=== PATIENT | female | born 1985 | race Caucasian/White ===

== ENCOUNTER 2017-07-10 13:35 | Inpatient (IN) | payer MEDICAID, SELFPAY ==
[2017-07-10 13:32] VITALS: BMI 22.4
--- NOTE | 2017-07-10 13:35 | HP.PCM_ITS ---
Problem List (1) Heroin withdrawal Status: Chronic (2) Cocaine abuse Status: Chronic (3) UTI (urinary tract infection) Status: Chronic Qualifiers: Urinary tract infection type: acute cystitis (4) Nicotine dependence Status: Chronic Qualifiers: Nicotine product type: cigarettes Substance use status: uncomplicated Qualified Code(s): F17.210 - Nicotine dependence, cigarettes, uncomplicated History of Present Illness Date of Admission: 07/10/17 Chief Complaint: Generalized aches, chills -1 day The patient is a 32 year old F with past medical history of heroin use disorder , cocaine use disorder, nicotine use disorder, with 6 reported episodes of overdoses with blackouts, recently being treated for UTI, anxiety and depression who comes in with feelings of nausea, chills, generalized aches, gooseflesh, feeling of things crawling on skin and restlessness. Patient is being admitted under the [facility] program for medical stabilization for opiate withdrawal. She reports being in a similar program in [place] 3 weeks ago. She last used heroin more than 1 g yesterday. Also used about the same amount of cocaine yesterday. She denied any fever but positive chills.\ Admitting vitals have been stable. 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 Denies: Anorexia, Fever, Weakness, Fatigue Eyes: Reports: Drainage. Denies: Blurred vision, Cataracts, Conjunctivae Inflammation, Double vision, Pain, Redness HEENT: Reports: Nasal Congestion. Denies: Head Aches, Hearing Changes, Sinus Congestion, Sinus Drainage Cardiovascular: Denies: Chest Pain, Claudication, Chest Pressure, Chest Tightness, Orthopnea, Palpitations, Paroxysmal Noc. Dyspnea Respiratory: Denies: Cough, Hemoptysis, Pleuritic Pain, Shortness of breath at rest, Shortness of breath upon exertion, Sputum production Gastrointestinal: Denies: Abdominal Pain, Constipation, Hematemesis, Nausea, Vomiting Genitourinary: Denies: Dysuria, Frequency, Hematuria Gynecological: Denies: Breast symptoms, Excessively long or heavy periods Musculoskeletal: Denies: Joint Pain, Joint stiffness, Joint swelling, Joint Tenderness Skin: Denies: Rash, Wounds Neurological: Denies: Numbness, Tingling, Focal weakness Psychiatric: Denies: Anxiety, Depression, Homicidal Ideations, Suicidal Ideations Hematologic/ Lymphatic: Denies: Easy Bruising, Easy Bleeding VTE Information - Inpt Only VTE Present on Admission: No VTE Pharm Prophylaxis ordered?: Yes - Physical Exam General: Alert, Oriented x3, Cooperative, - - Looks unwell, covered appreciate, not pale, no jaundice HEENT: Atraumatic, PERRLA, EOMI, Normocephalic Oral: Moist Mucosa Neck: Supple, No JVD, Negative Carotid Bruits Lungs: Clear to auscultation, Normal air movement Cardiovascular: Regular rate, Regular Rhythm, Normal S1, Normal S2, No murmurs, Tachycardic Abdomen: Bowel Sounds Present, Soft, Non Tender, Non-Distended, No Hepato- splenomegaly Extremities: No edema Skin: No rashes, No breakdown Musculoskeletal: No Tenderness to Palpation of Joints or Extremities Lymphatic: No Cervical, Supraclavicular, or Inguinal Adenopathy Neurological: Cranial nerves II-XII grossly intact, Neuro grossly intact Psych/Mental Status: Normal Affect, Appropriate Assessment/Plan 32 year old F with past medical history of heroin use disorder, cocaine use disorder, nicotine use disorder, with 6 reported episodes of overdoses with blackouts, recently being treated for UTI, anxiety and depression who comes in with feelings of nausea, chills, generalized aches, gooseflesh, feeling of things crawling on skin and restlessness. 1. Acute opiate withdrawal, will admit patient for medical stabilization the [facility], will follow management per protocol, get admitting blood work, urine for testing 2. Polysubstance use, cocaine and nicotine, will put on withdrawal protocol with nicotine replacement also 3. Recent UTI, on Macrobid, has 4 more pills to complete, will complete medication 4. Anxiety/depression, not on any medications 5. DVT prophylaxis with early ambulation Code Visit Inpatient E&M: 48793 Init Hosp L2
[2017-07-10 13:50] VITALS: BP 119/82; PULSE 78; RESP 16; TEMP 36.9
[2017-07-10 14:01] LABS: Absolute Lymphocyte Count 1.87 X10^3/ul (0.83-4.51); Absolute Neutrophil Count 4.7 X10^3/uL (2.0-7.7); Basophil# 0.02 X10^3/uL; Basophil% 0.3 % (0-1); Eosinophil# 0.17 X10^3/uL; Eosinophils% 2.4 % (0-5); Hematocrit 39.3 % (37-47); Hemoglobin 12.8 g/dl (12.0-15.0); Lymphocyte # 1.87 X10^3/ul (4.0); Lymphocyte % 26.1 % (19-41); Mean Corp Hgb Conc 32.6 g/gl (32-36); Mean Corpuscular Hgb 27.6 pg (27.0-32.0); Mean Corpuscular Volume 84.7 fL (81-99); Mean Platelet Vol. 10.3 fl (6.2-12.0); Monocyte# 0.42 X10^3/uL; Monocyte% 5.9 % (0-10); Neutrophil # 4.67 X10^3/uL (2.7-7.7); Neutrophil % 65.2 % (47-70); Platelet Count 314 K/mm3 (150-450); RBC Distribution Width CV 17.8 % (11.6-14.6); RBC Distribution Width SD 54.9 fl (35.1-43.9); Red Blood Count 4.64 M/mm3 (4.2-5.4); White Blood Count 7.2 K/mm3 (4.4-11.0)
[2017-07-10 14:06] LABS: POSITIVE COUNT NO; POSITIVE DIFFERENTIAL NO; POSITIVE MORPHOLOGY NO
[2017-07-10] MEDS: Buprenorphine HCl 2 MG TAB.SUBL SL ×2 (14:09→21:16)
[2017-07-10] MEDS: Methocarbamol 750 MG Tablet PO ×2 (14:09→20:09)
[2017-07-10] MEDS: QUEtiapine 25 MG Tablet PO ×2 (14:09→20:09)
[2017-07-10 14:18] LABS: BUN 8 mg/dL (7-18); Creatinine, Serum 0.83 mg/dL (0.55-1.02); Glucose 90 mg/dL (74-106)
[2017-07-10 14:19] LABS: ALB/GLOB Ratio 0.8 RATIO (0.9-2.4); AST(SGOT) 35 U/L (15-37); Alanine Aminotransfer ALT/SGPT 52 U/L (13-56); Albumin, Serum 3.4 g/dL (3.2-5.0); Alkaline Phosphatase 64 U/L (45-117); Anion Gap 4 (5-15); BUN/Creat Ratio 9.7 RATIO (10-20); Calcium,Total 8.7 mg/dL (8.5-10.1); Chloride 108 mmol/L (98-107); EST Glomerular Filtration Rate 85 mL/min (>60); Est Glom Filt Rate - Afr Amer 102 mL/min (>60); Estimated Creatinine Clearance 79.75 ml/min; Protein, Total 7.4 g/dL (6.4-8.2); Sodium Level 141 mmol/L (136-145)
[2017-07-10 15:08] LABS: Pregnancy, Serum, hCG Quali. NEGATIVE Negative (0-9 Nonpreg)
[2017-07-10] MEDS: Nitrofurantoin Macrocrystals 100 MG Capsule PO (16:52)
[2017-07-10] MEDS: Dicyclomine 10 MG Capsule 20 MG PO ×2 (16:53→23:54)
[2017-07-10] MEDS: cloNIDine HCl 0.1 MG Tablet PO ×2 (16:53→20:09)
[2017-07-10] MEDS: Ondansetron 8 MG Tablet PO (16:53)
[2017-07-10 16:57] VITALS: BP 124/78
[2017-07-10 18:00] VITALS: BP 119/82; PULSE 78; RESP 16; TEMP 36.9
[2017-07-10] MEDS: hydrOXYzine PAM 25 MG Capsule 50 MG PO (18:35)
[2017-07-10] MEDS: Pramipexole Di-HCl 0.25 MG Tablet PO (18:35)
[2017-07-10 18:57] LABS: Internal QC Validated? YES +Cl - CLEAR BKGD; Pregnancy, Urine Negative Negative
[2017-07-10 21:05] VITALS: BP 97/59; PULSE 66; RESP 16; TEMP 36.9
[2017-07-10] MEDS: Famotidine 20 MG Tablet PO (21:16)
[2017-07-10] MEDS: Ibuprofen 600 MG Tablet PO (21:22)
[2017-07-10] MEDS: Zolpidem Tartrate 5 MG Tablet PO (23:54)
[2017-07-11 01:09] VITALS: BP 92/49; PULSE 53; RESP 16; TEMP 36.2
[2017-07-11] MEDS: hydrOXYzine PAM 25 MG Capsule 50 MG PO ×4 (01:19→23:49)
[2017-07-11] MEDS: Methocarbamol 750 MG Tablet PO ×4 (03:23→23:49)
[2017-07-11] MEDS: QUEtiapine 25 MG Tablet PO ×3 (03:23→20:40)
[2017-07-11 05:05] VITALS: BP 92/59; PULSE 61; RESP 16; TEMP 36.3
[2017-07-11] MEDS: Buprenorphine HCl 2 MG TAB.SUBL SL ×3 (05:10→22:06)
[2017-07-11] MEDS: Dicyclomine 10 MG Capsule 20 MG PO ×2 (06:46→20:40)
[2017-07-11] MEDS: Ibuprofen 600 MG Tablet PO ×2 (06:47→20:39)
[2017-07-11] MEDS: Pramipexole Di-HCl 0.25 MG Tablet PO ×2 (06:47→20:40)
[2017-07-11 09:20] VITALS: BP 94/57; PULSE 52; RESP 16; TEMP 36.4; O2SAT 99
[2017-07-11] MEDS: Nitrofurantoin Macrocrystals 100 MG Capsule PO ×2 (09:22→16:39)
[2017-07-11] MEDS: Famotidine 20 MG Tablet PO ×2 (09:22→22:06)
--- NOTE | 2017-07-11 09:22 | PN_ITS ---
Subjective: Patient was seen and examined, she complains of generalized aches and chills. No acute events overnight. She denies any fever or chills. Objective: Physical Exam General: Alert, Oriented x3, Cooperative, - - Looks unwell, not pale, no jaundice HEENT: Atraumatic, PERRLA, EOMI, Normocephalic Oral: Moist Mucosa Neck: Supple, No JVD, Negative Carotid Bruits Lungs: Clear to auscultation, Normal air movement Cardiovascular: Regular rate, Regular Rhythm, Normal S1, Normal S2, No murmurs, Tachycardic Abdomen: Bowel Sounds Present, Soft, Non Tender, Non-Distended, No Hepato- splenomegaly Extremities: No edema Skin: No rashes, No breakdown Musculoskeletal: No Tenderness to Palpation of Joints or Extremities Lymphatic: No Cervical, Supraclavicular, or Inguinal Adenopathy Neurological: Cranial nerves II-XII grossly intact, Neuro grossly intact Psych/Mental Status: Normal Affect, Appropriate Vitals/I&O's: Vital Signs Temp Pulse Resp BP 97.3 F L 61 16 92/59 L 07/11/17 05:05 07/11/17 05:05 07/11/17 05:05 07/11/17 05:05 Oxygen Delivery Method Room Air Weight: 57.3 kg Body Mass Index (BMI) 22.4 Intake and Output for Last 24 Hours 07/09/17 07/10/17 07/11/17 23:59 23:59 23:59 Intake Total 738 / 738 200 / 200 Output Total 400 / 400 Balance 338 / 338 200 / 200 Laboratory Results 07/10/17 13:52: WBC 7.2, RBC 4.64, Hgb 12.8, Hct 39.3, MCV 84.7, MCH 27.6, MCHC 32.6, RDW 17.8 H, RDW Differential 54.9 H, Plt Count 314, MPV 10.3, Immature Gran % (Auto) 0.100, Neut % (Auto) 65.2, Lymph % (Auto) 26.1, [place] % (Auto) 5.9 , Eos % (Auto) 2.4, Baso % (Auto) 0.3, Absolute Neuts (auto) 4.7, Absolute Lymphs (auto) 1.87, Total Counted Not Reportable 07/10/17 13:52: Sodium 141, Potassium 4.0, Chloride 108 H, Carbon Dioxide 29.0, Anion Gap 4 L, BUN 8, Creatinine 0.83, Estim Creat Clear Calc 79.75, Est GFR ( MDRD) Af Amer 102, Est GFR (MDRD) Non-Af 85, BUN/Creatinine Ratio 9.7 L, Glucose 90, Calcium 8.7, Total Bilirubin 0.30, AST 35, ALT 52, Alkaline Phosphatase 64, Total Protein 7.4, Albumin 3.4, Globulin 4.0, Albumin/Globulin Ratio 0.8 L 07/10/17 13:52: Serum , Qual NEGATIVE 07/10/17 18:10: Urine Test Negative Current Medications Acetaminophen (Tylenol) 500 mg PO Q4H PRN PRN PRN Reason: Temp > 100.4 F Bisacodyl (Dulcolax) 5 mg PO DAILY PRN PRN PRN Reason: Constipation Buprenorphine HCl (Buprenorphine Hcl) 4 mg SL Q8H [facility] PRN Reason: Taper Stop: 07/13/17 17:44 Last Admin: 07/11/17 05:10 Dose: 4 mg Clonidine (Catapres) 0.1 mg PO Q2H PRN PRN PRN Reason: Hot/Cold Sweats or Anxiety Last Admin: 07/10/17 20:09 Dose: 0.1 mg Dicyclomine HCl (Bentyl) 20 mg PO Q6H PRN PRN PRN Reason: Abdomnial Discomfort Last Admin: 07/11/17 06:46 Dose: 20 mg Famotidine (Pepcid) 20 mg PO BID [facility] Last Admin: 07/10/17 21:16 Dose: 20 mg Folic Acid (Folic Acid) 1 mg PO DAILY@0800 [facility] Hydroxyzine HCl (Vistaril Vial) 50 mg IM Q6H PRN PRN PRN Reason: Breakthrough Anxiety Hydroxyzine Pamoate (Vistaril Pamoate Capsule) 50 mg PO Q6H PRN PRN PRN Reason: Mild Anxiety (score 1/3) Last Admin: 07/11/17 01:19 Dose: 50 mg Ibuprofen (Motrin) 600 mg PO Q8H PRN PRN PRN Reason: Mild-Moderate Pain (1-5/10) Last Admin: 07/11/17 06:47 Dose: 600 mg Loperamide HCl (Imodium) 2 - 4 mg PO UD PRN PRN Reason: LOOSE STOOLS Magnesium Hydroxide (Milk Of Magnesia) 30 ml PO DAILY PRN PRN PRN Reason: Constipation Methocarbamol (Methocarbamol) 750 mg PO Q6H PRN PRN PRN Reason: Muscle Aches Last Admin: 07/11/17 03:23 Dose: 750 mg Multivitamins/Minerals (Multivitamin With Minerals) 1 tablet PO DAILYCM [facility] Nicotine (Nicoderm Cq (Pbkc)) 21 mg TRANSDERM. DAILY [facility] Nicotine Polacrilex (Rugby Nicotine (Bkc)) 2 mg PO Q2H PRN PRN PRN Reason: Nicotine Craving Nitrofurantoin Macrocrystals (Macrobid) 100 mg PO BIDCM [facility] Stop: 07/12/17 08:01 Last Admin: 07/10/17 16:52 Dose: 100 mg Ondansetron HCl (Zofran) 8 mg PO Q8H PRN PRN PRN Reason: NAUSEA/VOMITING Last Admin: 07/10/17 16:53 Dose: 8 mg Pramipexole Dihydrochloride (Mirapex) 0.25 mg PO Q12H PRN PRN PRN Reason: Restless Legs Last Admin: 07/11/17 06:47 Dose: 0.25 mg Psyllium Hydrophilic Mucilloid (Metamucil) 1 packet PO DAILY PRN PRN PRN Reason: CONSTIPATION Quetiapine Fumarate (Seroquel) 25 mg PO Q6H PRN PRN PRN Reason: Moderate Anxiety (score 2/3) Last Admin: 07/11/17 03:23 Dose: 25 mg Zolpidem Tartrate (Ambien (Generic)) 5 mg PO QHS PRN PRN PRN Reason: INSOMNIA Last Admin: 07/10/17 23:54 Dose: 5 mg Medical Necessity - Tobacco Use Smoking Status: Current every day smoker Tobacco Use: Cigarettes Assessment/Plan 32 year old F with past medical history of heroin use disorder, cocaine use disorder, nicotine use disorder, with 6 reported episodes of overdoses with blackouts, recently being treated for UTI, anxiety and depression who comes in with feelings of nausea, chills, generalized aches, gooseflesh, feeling of things crawling on skin and restlessness. 1. Acute opiate withdrawal, clinically stable, continue on medical stabilization per [facility] 2. Polysubstance use, cocaine and nicotine, on withdrawal protocol with nicotine replacement also 3. Recent UTI, on Macrobid, will complete antibiotics tomorrow 4. Anxiety/depression, not on any medications 5. History of hepatitis C, needs to be followed up in the outpatient 6. DVT prophylaxis with early ambulation Code Visit Inpatient E&M: 11634 Subs Hosp L2
[2017-07-11] MEDS: Multivitamins,Ther W-Minerals Tablet 1 TABLET PO (09:23)
[2017-07-11] MEDS: Folic Acid 1 MG Tablet PO (09:23)
[2017-07-11] MEDS: cloNIDine HCl 0.1 MG Tablet PO (14:20)
[2017-07-11 14:22] VITALS: BP 111/54; PULSE 65; RESP 18; TEMP 37.3
[2017-07-11 16:40] VITALS: BP 95/49; PULSE 54; RESP 18; TEMP 37.1
[2017-07-11 20:26] VITALS: BP 94/60; PULSE 61; RESP 18; TEMP 36.8
[2017-07-11] MEDS: Zolpidem Tartrate 5 MG Tablet PO (23:48)
[2017-07-12 05:26] VITALS: BP 107/61; PULSE 63; RESP 18; TEMP 36.9
[2017-07-12] MEDS: Dicyclomine 10 MG Capsule 20 MG PO (05:33)
[2017-07-12] MEDS: QUEtiapine 25 MG Tablet PO ×2 (05:33→14:06)
[2017-07-12] MEDS: Buprenorphine HCl 2 MG TAB.SUBL SL ×2 (05:33→18:10)
[2017-07-12] MEDS: Ibuprofen 600 MG Tablet PO ×2 (05:33→14:06)
--- NOTE | 2017-07-12 06:45 | PCM.PROGNOTE ---
Subjective: The patient is a 32-year-old female with a past medical history of heroin addiction, cocaine use disorder, tobacco dependence and recently diagnosed urinary tract infection who has had 6 reported episodes of overdoses with blackouts. She also states she suffers from anxiety and depression. She presented to the [facility] office at [facility] on 07/10/2017 requesting inpatient admission for medical stabilization for opiate withdrawal. She had just attended a similar program in [place] 3 weeks prior to coming to [facility]. She reported using approximately 1 g of heroin and 1 g of cocaine the day preceding admission. Vital signs at admission were temp 98.4, pulse rate 78, blood pressure 119/82 and the respiratory rate was 16. CBC was unremarkable. Electrolytes were also unremarkable and the BUN was 8 with a creatinine of 0.83. Serum test was negative and the urine test was also negative. LFTs were unremarkable. The [facility] protocol for acute opiate withdrawal was initiated and the patient is currently on a Suboxone taper. Afebrile with stable vital signs She is restless and having some nausea and abdominal cramping No diarrhea, no vomiting On her most recent admission for detox she went home at [place]. She started using nearly right after [place]. She is + for Hep C in the past. She lives with her significant other and he is not a drug abuser. She plans on going to an inpt facility at [place] form [facility]. Has been using Heroin for 11 years. Her sister is a heroin addict and she just decided to try it and got hooked. Did not start with pills or pot or ETOH. - Physical Exam General: Alert, Oriented x3, Cooperative, - - she is restless and having some chills HEENT: Atraumatic, PERRLA, EOMI Oral: Moist Mucosa Neck: Supple, Trachea Midline Lungs: Clear to auscultation Cardiovascular: Regular rate, Regular Rhythm, Normal S1, Normal S2, No murmurs, No rub noted, No Gallop Abdomen: Bowel Sounds Present, Soft, Non Tender, Non-Distended, No Hepato-splenomegaly Extremities: No clubbing, No cyanosis, No edema, No Calf Tenderness Skin: No rashes Neurological: Cranial nerves II-XII grossly intact, Neuro grossly intact Psych/Mental Status: Normal Affect, Appropriate Vital Signs Temp Pulse Resp BP Pulse Ox 98.4 F 63 18 107/61 99 07/12/17 05:26 07/12/17 05:26 07/12/17 05:26 07/12/17 05:26 07/11/17 09:20 Oxygen Delivery Method Room Air Weight: 126 lb 5.198 oz Body Mass Index (BMI) 22.4 Intake and Output for Last 24 Hours 07/10/17 07/11/17 07/12/17 23:59 23:59 23:59 Intake Total 738 / 738 600 / 600 100 / 100 Output Total 400 / 400 Balance 338 / 338 600 / 600 100 / 100 Medical Necessity - Tobacco Use Smoking Status: Current every day smoker Tobacco Use: Cigarettes Assessment/Plan Impressions 1. Acute opiate withdrawal-admitted to the [facility] for medical stabilization for acute opiate withdrawal. [facility] protocol was initiated at admission. 2. Positive hepatitis C 3. Tobacco dependence 4. Recent UTI-on Macrobid New [facility] protocol for opiate withdrawal Plans inpatient facility at discharge Code Visit Inpatient E&M: 54177 Subs Hosp L2
--- NOTE | 2017-07-12 06:52 | PN_ITS ---
Subjective: The patient is a 32-year-old female with a past medical history of heroin addiction, cocaine use disorder, tobacco dependence and recently diagnosed urinary tract infection who has had 6 reported episodes of overdoses with blackouts. She also states she suffers from anxiety and depression. She presented to the [facility] office at [facility] on 07/10/2017 requesting inpatient admission for medical stabilization for opiate withdrawal. She had just attended a similar program in [place] 3 weeks prior to coming to [facility]. She reported using approximately 1 g of heroin and 1 g of cocaine the day preceding admission. Vital signs at admission were temp 98.4, pulse rate 78, blood pressure 119/82 and the respiratory rate was 16. CBC was unremarkable. Electrolytes were also unremarkable and the BUN was 8 with a creatinine of 0.83. Serum test was negative and the urine test was also negative. LFTs were unremarkable. The [facility] protocol for acute opiate withdrawal was initiated and the patient is currently on a Suboxone taper. Afebrile with stable vital signs She is restless and having some nausea and abdominal cramping No diarrhea, no vomiting On her most recent admission for detox she went home at [place]. She started using nearly right after [place]. She is + for Hep C in the past. She lives with her significant other and he is not a drug abuser. She plans on going to an inpt facility at [place] form [facility]. Has been using Heroin for 11 years. Her sister is a heroin addict and she just decided to try it and got hooked. Did not start with pills or pot or ETOH. - Physical Exam General: Alert, Oriented x3, Cooperative, - - she is restless and having some chills HEENT: Atraumatic, PERRLA, EOMI Oral: Moist Mucosa Neck: Supple, Trachea Midline Lungs: Clear to auscultation Cardiovascular: Regular rate, Regular Rhythm, Normal S1, Normal S2, No murmurs, No rub noted, No Gallop Abdomen: Bowel Sounds Present, Soft, Non Tender, Non-Distended, No Hepato- splenomegaly Extremities: No clubbing, No cyanosis, No edema, No Calf Tenderness Skin: No rashes Neurological: Cranial nerves II-XII grossly intact, Neuro grossly intact Psych/Mental Status: Normal Affect, Appropriate Vital Signs Temp Pulse Resp BP Pulse Ox 98.4 F 63 18 107/61 99 07/12/17 05:26 07/12/17 05:26 07/12/17 05:26 07/12/17 05:26 07/11/17 09:20 Oxygen Delivery Method Room Air Weight: 126 lb 5.198 oz Body Mass Index (BMI) 22.4 Intake and Output for Last 24 Hours 07/10/17 07/11/17 07/12/17 23:59 23:59 23:59 Intake Total 738 / 738 600 / 600 100 / 100 Output Total 400 / 400 Balance 338 / 338 600 / 600 100 / 100 Medical Necessity - Tobacco Use Smoking Status: Current every day smoker Tobacco Use: Cigarettes Assessment/Plan Impressions 1. Acute opiate withdrawal-admitted to the [facility] for medical stabilization for acute opiate withdrawal. [facility] protocol was initiated at admission. 2. Positive hepatitis C 3. Tobacco dependence 4. Recent UTI-on Macrobid New [facility] protocol for opiate withdrawal Plans inpatient facility at discharge Code Visit Inpatient E&M: 15256 Subs Hosp L2
[2017-07-12] MEDS: Nitrofurantoin Macrocrystals 100 MG Capsule PO (08:06)
[2017-07-12] MEDS: Multivitamins,Ther W-Minerals Tablet 1 TABLET PO (08:06)
[2017-07-12] MEDS: Folic Acid 1 MG Tablet PO (08:06)
[2017-07-12 10:00] VITALS: BP 112/62; PULSE 68; RESP 18; TEMP 36.3
[2017-07-12] MEDS: Famotidine 20 MG Tablet PO ×2 (10:31→20:52)
[2017-07-12 14:00] VITALS: BP 121/67; PULSE 75; RESP 18; TEMP 37.1
[2017-07-12 18:00] VITALS: BP 105/68; PULSE 87; RESP 18; TEMP 36.5
[2017-07-12] MEDS: hydrOXYzine PAM 25 MG Capsule 50 MG PO (18:13)
[2017-07-12] MEDS: Zolpidem Tartrate 5 MG Tablet PO (20:52)
[2017-07-12] MEDS: Pramipexole Di-HCl 0.25 MG Tablet PO (20:52)
[2017-07-12 22:00] VITALS: BP 121/68; PULSE 66; RESP 16; TEMP 36.7
[2017-07-13] MEDS: QUEtiapine 25 MG Tablet PO (00:49)
[2017-07-13] MEDS: Ibuprofen 600 MG Tablet PO (00:49)
[2017-07-13 02:00] VITALS: BP 121/73; PULSE 63; RESP 16; TEMP 36.4
[2017-07-13 04:09] LABS: HEPATITIS B SURFACE AG Negative (Negative); Hepatitis A AB, Total Negative (Negative); Hepatitis A IgM Antibody Negative (Negative); Hepatitis B Core AB IgM Negative (Negative); Hepatitis B Core Ab Total Negative (Negative)
[2017-07-13] MEDS: Buprenorphine HCl 2 MG TAB.SUBL SL (05:46)
[2017-07-13 08:18] VITALS: BP 113/70; PULSE 61; RESP 16; TEMP 36.6
[2017-07-13] MEDS: Folic Acid 1 MG Tablet PO (08:22)
[2017-07-13] MEDS: Famotidine 20 MG Tablet PO (08:22)
[2017-07-13] MEDS: Multivitamins,Ther W-Minerals Tablet 1 TABLET PO (08:23)
[2017-07-13 08:47] LABS: Hep B Surface Antibodies Reactive (.)
[2017-07-13 08:50] LABS: Hepatitis C Ab >11.0 s/co ratio (0.0-0.9)
--- NOTE | 2017-07-13 09:47 | PCM.DC ---
- Discharge Diagnoses Current Active Problems: Current Active and Chronic Problems Heroin withdrawal (Chronic) Cocaine abuse (Chronic) UTI (urinary tract infection) (Chronic) Nicotine dependence (Chronic) You will use the following diet at home:: No restrictions Your food should be the consistency of: Regular Your liquids should be the consistency of: Regular/Thin Discharge Activity: Return to Normal Activity Call your doctor if you observe: Fever of 101 or Higher, Shortness of breath, Dizziness, Fainting spells, Chest pain Allergies/Adverse Reactions: Allergies No Known Allergies Allergy (Verified 07/10/17 13:37) Medications to take at Discharge Nitrofurantoin Macrocrystals [Macrobid] 100 mg PO BID 07/10/17 Primary Care Physician: Care Physician,No Primary [Primary Care Provider] - Proposed Discharge Date: 07/13/17
--- NOTE | 2017-07-13 09:50 | PCM.DC.SUM ---
Discharge Date and Diagnosis - Problem List Patient Problems: Active and Suspected Problems Heroin withdrawal (Acute) UTI (urinary tract infection) (Acute) Date of Admission: 07/10/17 Date of Discharge: 07/13/17 - Primary Discharge Diagnosis Active and Suspected Problems Heroin withdrawal (Acute) UTI (urinary tract infection) (Acute) - Secondary Discharge Diagnosis Chronic Problems Opiate dependence (Chronic) Hepatitis C (Chronic) Cocaine abuse (Chronic) Nicotine dependence (Chronic) Hospital Course and Treatment Imaging Results: Laboratory Tests 07/10/17 07/10/17 07/10/17 13:52 13:52 13:52 WBC 7.2 RBC 4.64 Hgb 12.8 Hct 39.3 MCV 84.7 MCH 27.6 MCHC 32.6 RDW 17.8 H RDW Differential 54.9 H Plt Count 314 MPV 10.3 Immature Gran % (Auto) 0.100 Neut % (Auto) 65.2 Lymph % (Auto) 26.1 [place] % (Auto) 5.9 Eos % (Auto) 2.4 Baso % (Auto) 0.3 Absolute Neuts (auto) 4.7 Absolute Lymphs (auto) 1.87 Total Counted Not Reportable Sodium 141 Potassium 4.0 Chloride 108 H Carbon Dioxide 29.0 Anion Gap 4 L BUN 8 Creatinine 0.83 Estim Creat Clear Calc 79.75 Est GFR (MDRD) Af Amer 102 Est GFR (MDRD) Non-Af 85 BUN/Creatinine Ratio 9.7 L Glucose 90 Calcium 8.7 Total Bilirubin 0.30 AST 35 ALT 52 Alkaline Phosphatase 64 Total Protein 7.4 Albumin 3.4 Globulin 4.0 Albumin/Globulin Ratio 0.8 L Serum , Qual NEGATIVE Urine Test Hepatitis A IgM Ab Hepatitis A Ab Total Hep Bs Antigen Hep B Core Total Ab Hep B Core IgM Ab Hepatitis C Ab Confirm 07/10/17 07/12/17 18:10 07:20 WBC RBC Hgb Hct MCV MCH MCHC RDW RDW Differential Plt Count MPV Immature Gran % (Auto) Neut % (Auto) Lymph % (Auto) [place] % (Auto) Eos % (Auto) Baso % (Auto) Absolute Neuts (auto) Absolute Lymphs (auto) Total Counted Sodium Potassium Chloride Carbon Dioxide Anion Gap BUN Creatinine Estim Creat Clear Calc Est GFR (MDRD) Af Amer Est GFR (MDRD) Non-Af BUN/Creatinine Ratio Glucose Calcium Total Bilirubin AST ALT Alkaline Phosphatase Total Protein Albumin Globulin Albumin/Globulin Ratio Serum , Qual Urine Test Negative Hepatitis A IgM Ab Negative Hepatitis A Ab Total Negative Hep Bs Antigen Negative Hep B Core Total Ab Negative Hep B Core IgM Ab Negative Hepatitis C Ab Confirm >11.0 H None Operations: None Procedures: None Summary of Care Provided: The patient is a 32-year-old female with a past medical history of heroin addiction, cocaine use disorder, tobacco dependence and recently diagnosed urinary tract infection who has had 6 reported episodes of overdoses with blackouts. She also stated she suffers from anxiety and depression. She presented to the [facility] office at [facility] on 07/10/2017 requesting inpatient admission for medical stabilization for opiate withdrawal. She had just attended a similar program in [place] 3 weeks prior to coming to [facility] and relapsed soon after [place]. She went home after [place] and did not attend an OP program. She reported using approximately 1 g of heroin and 1 g of cocaine the day preceding admission. Vital signs at admission were temp 98.4, pulse rate 78, blood pressure 119/82 and the respiratory rate was 16. CBC was unremarkable. Electrolytes were also unremarkable and the BUN was 8 with a creatinine of 0.83. Serum test was negative and the urine test was also negative. LFTs were unremarkable. The [facility] protocol for acute opiate withdrawal was initiated and the patient is currently on a Suboxone taper. She had an uneventful hospital course and was discharged on 07/13/2017. Her plan is to attend an inpatient drug rehab program. Exam at discharge: Alert and oriented ?3, no tremors, lungs clear to auscultation, heart regular rate and rhythm without murmur, no peripheral edema, abdomen soft and nontender. This note was generated with [employer] dictation software. It may contain incorrect words, spelling, and punctuation that were not noted in checking the note before signing. Discharge Activity: Return to Normal Activity Call your doctor if you observe: Fever of 101 or Higher, Shortness of breath, Dizziness, Fainting spells, Chest pain Home Medications: Medications to take at Discharge Nitrofurantoin Macrocrystals [Macrobid] 100 mg PO BID 07/10/17 Primary Care Physician: Care Physician,No Primary [Primary Care Provider] - Minutes spent on discharge:: 30 Patient Condition:: Good Medical Necessity - Tobacco Use Smoking Status: Current every day smoker Tobacco Use: Cigarettes Meaningful Use Info Meaningful Use Diagnoses (Choose all that apply): None applicable Code Visit Inpatient E&M: 58778 Disch Hosp
--- NOTE | 2017-07-13 09:57 | DS.PCM_ITS ---
Discharge Date and Diagnosis - Problem List Patient Problems: Active and Suspected Problems Heroin withdrawal (Acute) UTI (urinary tract infection) (Acute) Date of Admission: 07/10/17 Date of Discharge: 07/13/17 - Primary Discharge Diagnosis Active and Suspected Problems Heroin withdrawal (Acute) UTI (urinary tract infection) (Acute) - Secondary Discharge Diagnosis Chronic Problems Opiate dependence (Chronic) Hepatitis C (Chronic) Cocaine abuse (Chronic) Nicotine dependence (Chronic) Hospital Course and Treatment Imaging Results: Laboratory Tests 07/10/17 07/10/17 07/10/17 13:52 13:52 13:52 WBC 7.2 RBC 4.64 Hgb 12.8 Hct 39.3 MCV 84.7 MCH 27.6 MCHC 32.6 RDW 17.8 H RDW Differential 54.9 H Plt Count 314 MPV 10.3 Immature Gran % (Auto) 0.100 Neut % (Auto) 65.2 Lymph % (Auto) 26.1 [place] % (Auto) 5.9 Eos % (Auto) 2.4 Baso % (Auto) 0.3 Absolute Neuts (auto) 4.7 Absolute Lymphs (auto) 1.87 Total Counted Not Reportable Sodium 141 Potassium 4.0 Chloride 108 H Carbon Dioxide 29.0 Anion Gap 4 L BUN 8 Creatinine 0.83 Estim Creat Clear Calc 79.75 Est GFR (MDRD) Af Amer 102 Est GFR (MDRD) Non-Af 85 BUN/Creatinine Ratio 9.7 L Glucose 90 Calcium 8.7 Total Bilirubin 0.30 AST 35 ALT 52 Alkaline Phosphatase 64 Total Protein 7.4 Albumin 3.4 Globulin 4.0 Albumin/Globulin Ratio 0.8 L Serum , Qual NEGATIVE Urine Test Hepatitis A IgM Ab Hepatitis A Ab Total Hep Bs Antigen Hep B Core Total Ab Hep B Core IgM Ab Hepatitis C Ab Confirm 07/10/17 07/12/17 18:10 07:20 WBC RBC Hgb Hct MCV MCH MCHC RDW RDW Differential Plt Count MPV Immature Gran % (Auto) Neut % (Auto) Lymph % (Auto) [place] % (Auto) Eos % (Auto) Baso % (Auto) Absolute Neuts (auto) Absolute Lymphs (auto) Total Counted Sodium Potassium Chloride Carbon Dioxide Anion Gap BUN Creatinine Estim Creat Clear Calc Est GFR (MDRD) Af Amer Est GFR (MDRD) Non-Af BUN/Creatinine Ratio Glucose Calcium Total Bilirubin AST ALT Alkaline Phosphatase Total Protein Albumin Globulin Albumin/Globulin Ratio Serum , Qual Urine Test Negative Hepatitis A IgM Ab Negative Hepatitis A Ab Total Negative Hep Bs Antigen Negative Hep B Core Total Ab Negative Hep B Core IgM Ab Negative Hepatitis C Ab Confirm >11.0 H None Operations: None Procedures: None Summary of Care Provided: The patient is a 32-year-old female with a past medical history of heroin addiction, cocaine use disorder, tobacco dependence and recently diagnosed urinary tract infection who has had 6 reported episodes of overdoses with blackouts. She also stated she suffers from anxiety and depression. She presented to the [facility] office at [facility] on 07/10/2017 requesting inpatient admission for medical stabilization for opiate withdrawal. She had just attended a similar program in [place] 3 weeks prior to coming to [facility] and relapsed soon after DC. She went home after DC and did not attend an OP program. She reported using approximately 1 g of heroin and 1 g of cocaine the day preceding admission. Vital signs at admission were temp 98.4, pulse rate 78, blood pressure 119/82 and the respiratory rate was 16. CBC was unremarkable. Electrolytes were also unremarkable and the BUN was 8 with a creatinine of 0.83. Serum test was negative and the urine test was also negative. LFTs were unremarkable. The [facility] protocol for acute opiate withdrawal was initiated and the patient is currently on a Suboxone taper. She had an uneventful hospital course and was discharged on 07/13/2017. Her plan is to attend an inpatient drug rehab program. Exam at discharge: Alert and oriented ?3, no tremors, lungs clear to auscultation, heart regular rate and rhythm without murmur, no peripheral edema , abdomen soft and nontender. This note was generated with Sup[employer]amed dictation software. It may contain incorrect words, spelling, and punctuation that were not noted in checking the note before signing. Discharge Activity: Return to Normal Activity Call your doctor if you observe: Fever of 101 or Higher, Shortness of breath, Dizziness, Fainting spells, Chest pain Home Medications: Medications to take at Discharge Nitrofurantoin Macrocrystals [Macrobid] 100 mg PO BID 07/10/17 Primary Care Physician: Care Physician,No Primary [Primary Care Provider] - Minutes spent on discharge:: 30 Patient Condition:: Good Medical Necessity - Tobacco Use Smoking Status: Current every day smoker Tobacco Use: Cigarettes Meaningful Use Info Meaningful Use Diagnoses (Choose all that apply): None applicable Code Visit Inpatient E&M: 38751 Disch Hosp
== END 2017-07-13 11:00 | disposition home or self-care (01) | DRG 434 ==
PROVIDERS: Admitting Provider Internal Medicine; Visit Provider Internal Medicine
DX: F11.23 Opioid dependence with withdrawal (principal); N39.0 Urinary tract infection, site not specified; B19.20 Unspecified viral hepatitis C without hepatic coma; F17.210 Nicotine dependence, cigarettes, uncomplicated; F14.10 Cocaine abuse, uncomplicated; F41.9 Anxiety disorder, unspecified; F32.9 Major depressive disorder, single episode, unspecified
CPT/HCPCS: 36415; 80053; 81025; 84703; 85025; 86704; 86705; 86706; 86708; 86709; 86803; 87340; 97802